=== PATIENT | female | born 1985 | race American Indian/Alaskan Native ===

== ENCOUNTER 2020-06-19 10:47 | Emergency (ER) | payer MEDICAID ==
[2020-06-19 11:51] VITALS: BP 126/71
--- NOTE | 2020-06-19 12:07 | Emergency Department Report ---
ED General Adult HPI - General Chief complaint: Extremity Injury, Lower Stated complaint: LEFT LEG PAIN PUI?: No Source: patient Mode of arrival: Ambulatory Limitations: No Limitations - History of Present Illness Initial comments: This is a 34-year-old female with no prior medical history presents the ED complaining left-sided buttock to thigh pain that began yesterday and worsened today. Patient states that pain is a shooting pain that comes and goes intermittently. Patient states that when she has been at work standing for long period of time is what worsens the pain. She denies any injury trauma or or falls. - Related Data Previous Rx's Medication Instructions Recorded Last Taken Type Cyclobenzaprine [Flexeril] 10 mg PO QHS PRN #20 tablet 06/19/20 Unknown Rx Ibuprofen [Motrin 800 MG tab] 800 mg PO Q8HR PRN #30 tablet 06/19/20 Unknown Rx predniSONE [Deltasone] 20 mg PO QDAY #5 tab 06/19/20 Unknown Rx Allergies Allergy/AdvReac Type Severity Reaction Status Date / Time shellfish derived Allergy Unknown Verified 06/19/20 11:48 ED Review of Systems ROS: Stated complaint: LEFT LEG PAIN Other details as noted in HPI Comment: All other systems reviewed and negative ED Past Medical Hx - Past Medical History Previous Medical History?: No - Social History Smoking Status: Never Smoker Substance Use Type: None - Medications Home Medications: Home Medications Medication Instructions Recorded Confirmed Last Taken Type Cyclobenzaprine [Flexeril] 10 mg PO QHS PRN #20 tablet 06/19/20 Unknown Rx Ibuprofen [Motrin 800 MG tab] 800 mg PO Q8HR PRN #30 tablet 06/19/20 Unknown Rx predniSONE [Deltasone] 20 mg PO QDAY #5 tab 06/19/20 Unknown Rx ED Physical Exam - General Limitations: No Limitations General appearance: alert, in no apparent distress - Head Head exam: Present: atraumatic, normocephalic - Eye Eye exam: Present: normal appearance - ENT ENT exam: Present: mucous membranes moist - Neck Neck exam: Present: normal inspection - Respiratory Respiratory exam: Present: normal lung sounds bilaterally. Absent: respiratory distress - Cardiovascular Cardiovascular Exam: Present: regular rate, normal rhythm. Absent: systolic murmur, diastolic murmur, rubs, gallop - GI/Abdominal GI/Abdominal exam: Present: soft, normal bowel sounds - Extremities Exam Extremities exam: Present: normal inspection, full ROM, normal capillary refill, other (Straight leg raise positive to the left.). Absent: joint swelling, calf tenderness - Back Exam Back exam: Present: normal inspection, full ROM. Absent: tenderness (No spinal tenderness), CVA tenderness (R), CVA tenderness (L) - Neurological Exam Neurological exam: Present: alert, oriented X3 - Psychiatric Psychiatric exam: Present: normal affect, normal mood - Skin Skin exam: Present: warm, dry, intact, normal color. Absent: rash ED Course Vital Signs 06/19/20 11:49 Temperature 98.4 F Pulse Rate 78 Respiratory 18 Rate Blood Pressure 126/71 O2 Sat by Pulse 100 Oximetry ED Medical Decision Making - Medical Decision Making This 34-year-old female who presented with sciatic nerve pain of the left. Discussed with patient follow-up with her neurologist and her primary care physician is warranted. Discussed pain control with Motrin every 8 hours. Patient is ambulatory with no neurological deficit. Vital signs are normal and she is in no acute distress. Neurologist referral was given to patient patient understand instructions to follow-up. Critical care attestation.: If time is entered above; I have spent that time in minutes in the direct care of this critically ill patient, excluding procedure time. ED Disposition Clinical Impression: Sciatic leg pain, Sciatic nerve pain Disposition: - TO HOME OR SELFCARE Is pt being admited?: No Does the pt Need Aspirin: No Condition: Stable Instructions: Lumbar Radiculopathy (ED), Sciatica (ED), Piriformis Syndrome (ED) Additional Instructions: Make sure to follow up with the primary care physician as well as neurologist as discussed. Take all your medications as you've been prescribed. If you have any worsening symptoms or develop new symptoms please return to ED immediately. Referrals: PRIMARY CARE, [Primary Care Provider] - 3-5 Days [facility] [Provider Group] - 3-5 Days [facility] [Provider Group] - 3-5 Days [facility] [Outside] - 3-[address] [facility] [Outside] - 3-5 Days Forms: Work/School Release Form(ED) Time of Disposition: 12:21
== END 2020-06-19 12:53 | disposition home or self-care (01) ==
LOC: ED 10:47
DX: M54.32 Sciatica, left side (principal); G58.8 Other specified mononeuropathies; Z79.1 Long term (current) use of non-steroidal anti-inflammatories (NSAID); Z79.899 Other long term (current) drug therapy; Z91.013 Allergy to seafood
CPT/HCPCS: 99282